=== PATIENT | male | born 1965 | race Hispanic/Latino ===

== ENCOUNTER 2023-04-10 10:58 | Day surgery (SDC) | payer OTHER, SELFPAY ==
[2023-04-10] VITALS (9 sets, daily range): BP systolic 120–148; BP diastolic 62–82; PULSE 46–53; RESP 12–16; TEMP 36.6–36.7; O2SAT 97–100; BMI 28.3
--- NOTE | 2023-04-10 | DI.RAD.S_ITS ---
PROCEDURE: XR FOOT RT MIN 3V INDICATIONS: Hallux rigidus repair TECHNIQUE: Fluoroscopic guidance utilized for a hallux rigidus repair. COMPARISON: None. FINDINGS: Fluoroscopic guidance is utilized for a right 1st MTP arthroplasty, which appears normally aligned. IMPRESSION: Fluoroscopic guidance. Please see OR note. Dictated by: Yan Calix M.D. on 04/10/2023 at 15:44 Approved by: Yan Calix M.D. on 04/10/2023 at 15:45
--- NOTE | 2023-04-10 09:08 | P.HP_ITS ---
History of Present Illness History of Present Illness Chief complaint: [facility] [place] Narrative: 57 year old male reports for painful right great toe. Patient would like to proceed with surgical intervention now due to limited and transient improvement from conservative care over 6 months. Patient is convinced that restoring more motion to the right great toe joint will help with his overall biomechanics, as he is active and enjoys walking daily. The condition is negatively impacting his activities of daily living. Patient was medically cleared for surgery since last visit. Patient denies new changes to medical history. Patient denies n/v/f/c/sob/cp. Review of Systems Review of Systems Narrative: Negative except as mentioned in HPI. Exam Neuro Other: NV intact without deficits. Extrem Other: Limited right 1st MPTJ ROM with pain at end range of motion and crepitus through out. Bony prominence at dorsal aspect of right metatarsal head 1. Assessment & Plan Assessment & Plan narrative: 1. Hallux rigidus, right foot. Patient seen and evaluated. Surgical plan: right foot hallux rigidus correction with cheilectomy, debridement, and capsular release of the first metatarsophalangeal joint; hemiarthroplasty with implant from [employer]. Risks and benefits of the procedure discussed with all questions answered to patient's satisfaction. Reviewed potential complications that may include but not limited to the following: DVT, failure to resolve all symptoms, infection, nerve injury, bleeding, recurrence, or wound. Reviewed surgical technique and general aftercare protocols. Patient seen and evaluated. Surgical plan: right foot hallux rigidus correction with cheilectomy, debridement, and capsular release of the first metatarsophalangeal joint; hemiarthroplasty with implant from [employer]. Risks and benefits of the procedure discussed with all questions answered to patient's satisfaction. Reviewed potential complications that may include but not limited to the following: DVT, failure to resolve all symptoms, infection, nerve injury, bleeding, recurrence, or wound. Reviewed surgical technique and general aftercare protocols. All questions answered to patient's satisfaction with no guarantees made. Patient verbalized understanding and agreed with surgical plan. RTC for post-op. All questions answered to patient's satisfaction with no guarantees made. Patient verbalized understanding and agreed with surgical plan. RTC for post-op.
[2023-04-10] MEDS: LACTATED RINGERS 1,000 ML 100 ML IV ×2 (12:00→13:51)
--- NOTE | 2023-04-10 12:49 | PM.PREOP ---
Pre-operative Note Interval Note History & Physical reviewed/Exam performed by Physician: Yes Changes to H&P: No
[2023-04-10] MEDS: CEFAZOLIN 2 GM/100 ML PREMIX 100 ML IV (13:00)
--- NOTE | 2023-04-10 13:13 | SUR.OPER ---
Supine on padded OR bed, head on pillow, arms secured on padded arm boards at <90 degrees abduction, legs uncrossed, safety belt at thigh, tape over blanket over non-operative leg.
[2023-04-10] MEDS: BUPIVACAINE 0.5% (PF) 30 ML VIAL INJ (13:19)
[2023-04-10] MEDS: VANCOMYCIN 1,000 MG VIAL 1000 MG TOP (14:11)
--- NOTE | 2023-04-10 22:30 | P.OP_ITS ---
Operative Date/Time/Diagnoses Date of procedure: 04/10/23 Pre-op diagnosis: 1. Right foot hallux rigidus Post-op diagnosis: same Procedure & Clinicians Procedure: 1. Right foot hallux rigidus repair with implant Same procedure as scheduled: Yes Indications: Patient failed conservative care and does no want fusion. Surgeon: Carter Crabtree Click Yes if Unassisted: Yes Anesthesia Type: General Operative Notes Findings: Hypertrophic bone and degenerative changes to first metatarsophalangeal joint. Closure Type: primary Specimen(s): none sent Prosthetic devices, grafts, tissues, transplants, or devices: BioPoly 20 mm Great Toe Implant Applied: cast(s) Estimated Blood Loss (mL): 10 Blood products transfused: none Tourniquet time (min): 50 Procedure in detail: Patient was identified, brought into the operating room via gurney, and transferred onto the operating room table. Patient was in supine position. General anesthesia was administered. Ankle tourniquet was applied over well- padded surface. Right foot was then prepped and draped in the usual sterile fashion, followed by official timeout with the surgical team. Right lower extremity was exsanguinated, and tourniquet was inflated to 220 mmHg. Attention was directed to the right forefoot. A linear incision was carried using # 15 scalpel in layers down to the capsule/joint/bone. Care was taken to retract neurovascular bundles and protect extensor tendons. The capsular tissues were reflected, and the joint was exposed. A McGlamery elevator was used free up the plantar adhesion. Hypertrophic bone formations were noted on the dorsal, medial, and lateral surfaces of first metatarsal head and proximal phalan, resulted in range of motion. A rongeur was used to remove the eburnation. Moderate deterioration was also noted to the cartilage for first metatarsal head. Decision was made to proceed with implant hemiarthroplasty. Following manufacture instructions for [employer], the cut guide was placed for proper resection of first metatarsal head using a sagittal saw. Appropriate size of the implant was found to be at 20 mm, and the respective cannulated drill was used over k-wire with position verified on fluoroscopy. A trial was inserted, and additional modification of the surrounding bone was made using a sagittal saw and a rasp. The implant was then inspected and inserted into the press fit drill hole without complication. Proper positioning was ascertained on fluoroscopy. Improved first metatarsophalangeal joint range of motion was noted. Procedure site was then irrigated using copious saline. Vancomycin powder was applied. Tourniquet was released at 50 minutes with perfusion noted. Surgical site was closed in layers from deep to superficial using 3-0 vicryl, 4-0 monocryl, and 4-0 nylon. 10 cc of 0.5% bupivacaine plain was administered. Incision and foot was washed and dried, followed by sterile dressing using iodine soaked Adaptic, gauze, abdominal pad, and Kerlix. Posterior splint was applied over cast padding and secured with elastic bandage. Patient tolerated procedure without complication and was transferred to PACU with vital signs stable. Post-operative Condition: stable Disposition: same day surgery Plan for aftercare: NWB to surgical limb. Ice behind knee 15 min/hr. Elevate above heart on 2+ pillows. Take pain medications as directed. RTC as scheduled.
== END 2023-04-10 16:10 | disposition home or self-care (01) ==
PROVIDERS: Referring Provider Podiatrist Foot & Ankle Surgery; Visit Provider Podiatrist Foot & Ankle Surgery
PROC: 0QBN0ZZ Excision of Right Metatarsal, Open Approach (ICD-10-PCS; CPT 28292; principal; 2023-04-10 12:45)
DX: M20.21 Hallux rigidus, right foot (principal)
CPT/HCPCS: 28291; 73630; 76000; C1776; J0690; J1100; J1885; J2405; J2704; J3010